=== PATIENT | male | born 1990 | race Caucasian/White ===

== ENCOUNTER 2018-05-03 12:02 | Emergency (ER) | payer OTHER ==
[~2018-05-03] VITALS: Ht 175.3 cm; Wt 90.7 kg
--- NOTE | 2018-05-03 12:30 | NUR ---
Patient presents to ER c/o abscess on his coccyx. Patient states he has had this problem for months and is requesting a sandwich. Education provided regarding NPO status until seen by [facility]. To room 5A.
--- NOTE | 2018-05-03 14:09 | NUR ---
Patient discharged to home in stable conditon. Written and verbal after care instructions given. Patient verbalizes understanding of instructions.
== END 2018-05-03 14:10 | disposition home or self-care (01) ==
LOC: ER 12:07 → EDSEX 12:07 → ER 14:10
DX: L05.91 Pilonidal cyst without abscess (principal)
CPT/HCPCS: 99283; A4663

== ENCOUNTER 2018-07-25 14:52 | Emergency (ER) | payer OTHER ==
[~2018-07-25] VITALS: Ht 175.3 cm; Wt 95.3 kg
[2018-07-25] MEDS ORDERED: CARB200T PO (15:24)
[2018-07-25] MEDS ORDERED: QUET100T PO (15:24)
[2018-07-25] MEDS ORDERED: QUET200T PO (15:24)
[2018-07-25] MEDS ORDERED: PANTOPRAZOLE SODIUM 40 MG VIAL IV ONE (15:45)
[2018-07-25] MEDS ORDERED: IV NORMAL SALINE 1000 ML BAG IV ONE (15:45)
[2018-07-25] MEDS ORDERED: CLONIDINE HCL 0.1 MG TABLET PO ONE (15:45)
[2018-07-25] MEDS ORDERED: ONDANSETRON 4 MG/2 ML VIAL IV ONE (15:45)
[2018-07-25] MEDS ORDERED: CLONIDINE HCL 0.1 MG TABLET ONE (16:00)
[2018-07-25] MEDS ORDERED: ONDANSETRON 4 MG/2 ML VIAL ONE (16:00)
[2018-07-25 16:01] LABS: BASOPHILS # (AUTO) 0.1 K/uL (0.0-8.0); BASOPHILS % (AUTO) 0.5 % (0.0-2.0); EOSINOPHILS # (AUTO) 0.1 K/uL (0.0-0.7); EOSINOPHILS % (AUTO) 1.3 % (0.0-7.0); HEMATOCRIT 45.9 % (36.7-47.1); HEMOGLOBIN 15.8 g/dL (12.5-16.3); LYMPHOCYTES % (AUTO) 18.8 % (20.5-51.5); MEAN CORPUSCULAR HEMOGLOBIN 30.4 uug (23.8-33.4); MEAN CORPUSCULAR HGB CONC 34 g/dL (32.5-36.3); MEAN CORPUSCULAR VOLUME 88.5 fL (73.0-96.2); MONOCYTES # (AUTO) 0.5 K/uL (2.0-10.0); MONOCYTES % (AUTO) 5.2 % (0.0-11.0); NEUTROPHILS # (AUTO) 7.8 K/uL (1.8-8.9); NEUTROPHILS % (AUTO) 74.2 % (38.5-71.5); PLATELET COUNT (AUTO) 223 K/uL (152-348); RED BLOOD CELL COUNT(AUTO) 5.19 MIL/uL (4.06-5.63); WHITE BLOOD COUNT (AUTO) 10.5 K/uL (3.6-10.2)
[2018-07-25] MEDS ORDERED: PANTOPRAZOLE SODIUM 40 MG VIAL ONE (16:01)
[2018-07-25 16:05] VITALS: BP 157/88
[2018-07-25 16:07] LABS: CREATININE 1.2 mg/dL (0.6-1.3)
[2018-07-25 16:13] LABS: BILIRUBIN,DIRECT 0.1 mg/dL (0.0-0.2); BILIRUBIN,TOTAL 0.6 mg/dL (0.2-1.0); TOTAL PROTEIN, SERUM 8.2 g/dL (6.4-8.2)
[2018-07-25] MEDS ORDERED: CLONAZEPAM 0.5 MG TABLET PO ONE (16:30)
[2018-07-25] MEDS ORDERED: CLONAZEPAM 1 MG TABLET ONE (16:37)
--- NOTE | 2018-07-25 17:12 | NUR ---
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
--- NOTE | 2018-07-25 17:24 | NUR ---
Patient discharged to home in stable conditon. Written and verbal after care instructions given. Patient verbalizes understanding of instructions.PT WAKS IN STEADY GAIT.
== END 2018-07-25 17:25 | disposition home or self-care (01) ==
LOC: ER 14:54
DX: F11.23 Opioid dependence with withdrawal (principal); F11.10 Opioid abuse, uncomplicated; R19.7 Diarrhea, unspecified; Z79.899 Other long term (current) drug therapy
CPT/HCPCS: 36415; 80048; 80076; 85025; 96361; 96374; 96375; 99283; C9113; J2405; A4663; J7030

== ENCOUNTER 2019-02-26 09:39 | Emergency (ER) | payer OTHER ==
[~2019-02-26] VITALS: Ht 175.3 cm; Wt 104.3 kg
[~2019-02-26 09:39] MED LIST: CARB200T PO; QUET100T PO; QUET200T PO
[2019-02-26] MEDS ORDERED: LIDOCAINE HCL 1% 20 ML VIAL TP ONE (10:00)
--- NOTE | 2019-02-26 10:01 | NUR ---
PT IS IN ROOM #2B. DR LOPEZ EVALUATED THE PT AND PERFORMED I&D PROCEDURE AT PT's LEFT THIGH. PT TOLERATED TO PROCEDURE WITHOUT COMPLICATIONS.
--- NOTE | 2019-02-26 10:23 | NUR ---
PT WAS D/C'd TO HOME. D/C INSTRUCTIONS GIVEN TO THE PT. NO BLEEDING. DRESSING IS INTACT.
[2019-02-26 10:24] VITALS: BP 147/85
[2019-02-27] MEDS ORDERED: SULF1TAB48 PO (10:09)
[2019-02-27] MEDS ORDERED: CEPH-570 PO (10:09)
== END 2019-02-26 10:25 | disposition home or self-care (01) ==
LOC: ER 09:39
DX: L02.416 Cutaneous abscess of left lower limb (principal); L03.116 Cellulitis of left lower limb; Z79.899 Other long term (current) drug therapy
CPT/HCPCS: 10060; 99283; J3490; A4663

== ENCOUNTER 2019-02-27 09:54 | Emergency (ER) | payer OTHER ==
[~2019-02-27] VITALS: Ht 175.3 cm; Wt 86.2 kg
[2019-02-27] MEDS ORDERED: CEPH-570 PO (10:09)
[2019-02-27] MEDS ORDERED: SULF1TAB48 PO (10:09)
[2019-02-27] MEDS ORDERED: LIDOCAINE 1%-EPI 1:100,000 20 ML VIAL ONE (10:24)
--- NOTE | 2019-02-27 10:26 | NUR ---
Pt currently stable in NAD. Pt reports to ED secondary to wound follow-up. Pt had an I&D to L inner thigh followed by packing. Packing removed, moderate draining noted. Packing replaced and dressing changed. Pt will be discharged per MD order.
[2019-02-27] MEDS ORDERED: LIDOCAINE 1%-EPI 1:100,000 20 ML VIAL TP ONE (10:30)
== END 2019-02-27 10:45 | disposition home or self-care (01) ==
LOC: ER 09:54
DX: Z48.01 Encounter for change or removal of surgical wound dressing (principal); Z79.899 Other long term (current) drug therapy
CPT/HCPCS: 99283; J3490; A4663

== ENCOUNTER 2019-03-01 13:45 | Emergency (ER) | payer OTHER ==
[~2019-03-01] VITALS: Ht 175.3 cm; Wt 86.2 kg
[~2019-03-01 13:45] MED LIST changes: +CEPH-570 PO; +SULF1TAB48 PO
--- NOTE | 2019-03-01 13:50 | NUR ---
Patient is AOx4, speaking in complete sentences, speech is clear. Able to follow /comprehend directions. Gait is stable. No cardiovascular distress noted. Rate/rhythm regular. No CP. No respiratory distress noted. Respirations even , unlabored, symmetrical chest rise. No adventitious sounds noted. Chief complaint: Patient is here for wound check and redressing. Assessed wound to be circular with irregular edges, less than 1cm in depth. less than 1in in diameter. no signs of cellulitis, nor further infection. Denies Fever/Chills. No recent travel. No pertinent medical history/NKDA. + ETOH/ +recreational drug use/ +5cigarettes per day. Patient in bed, bed in lowest position. Siderails up x 2. Call light within reach. Will continue to monitor accordingly
--- NOTE | 2019-03-01 14:45 | NUR ---
Pt at bedside for physical and history.
--- NOTE | 2019-03-01 15:52 | NUR ---
Wound dressing done on L inner groin, asepsis observed. pt able to tolerate re-dressing. NAD.
--- NOTE | 2019-03-01 15:53 | NUR ---
Patient discharged to home in stable conditon. Written and verbal after care instructions given. Patient verbalizes understanding of instructions. Ambulated from ER with stable gait. All belongings with patient. Dressing applied. No bleeding at site. Covered with dry dressing/tegaderm and iodine for infection control measures.
[2019-03-01 15:58] VITALS: BP 132/78
== END 2019-03-01 16:00 | disposition home or self-care (01) ==
LOC: ER 13:45
DX: Z48.01 Encounter for change or removal of surgical wound dressing (principal); F17.210 Nicotine dependence, cigarettes, uncomplicated; F11.10 Opioid abuse, uncomplicated; Z79.899 Other long term (current) drug therapy
CPT/HCPCS: A4663

== ENCOUNTER 2022-09-09 22:00 | Emergency (ER) | payer OTHER ==
[~2022-09-09] VITALS: Ht 177.8 cm; Wt 83.0 kg
[2022-09-09] MEDS ORDERED: IV NORMAL SALINE 1000 ML BAG IV ONE (23:15)
[2022-09-09] MEDS ORDERED: KETOROLAC TROMETHAMINE 30 MG INJ IVP ONE (23:15)
[2022-09-09 23:30] LABS: HEMATOCRIT 40.3 % (36.7-47.1); MEAN CORPUSCULAR HEMOGLOBIN 30.8 uug (23.8-33.4); MEAN CORPUSCULAR VOLUME 90.1 fL (73.0-96.2); PLATELET COUNT (AUTO) 181 K/uL (152-348)
[2022-09-09 23:46] LABS: CARBON DIOXIDE 31 mmol/L (21-32); CHLORIDE 102 mmol/L (98-107); CREATININE 0.8 mg/dL (0.6-1.3); GLUCOSE 107 mg/dL (74-106); POTASSIUM 3.7 mmol/L (3.5-5.1); UREA NITROGEN, BLOOD 18 mg/dL (7-18)
[2022-09-10] MEDS ORDERED: KETOROLAC TROMETHAMINE 30 MG INJ ONE (00:05)
[2022-09-10] MEDS ORDERED: BENZ-13 PO (01:00)
[2022-09-10] MEDS ORDERED: GUAI-789 PO (01:00)
--- NOTE | 2022-09-10 01:02 | NUR ---
Patient discharged to home in stable condition. Written and verbal after care instructions given. Patient verbalizes understanding of instructions. Stressed follow up or return to ER for worsening s/s. Patient walked out with steady gait.
[2022-09-10 02:25] VITALS: BP 130/76
== END 2022-09-10 01:05 | disposition home or self-care (01) ==
LOC: ER 22:00
DX: R05.9 Cough, unspecified (principal); R07.9 Chest pain, unspecified; Z86.19 Personal history of other infectious and parasitic diseases; Z87.448 Personal history of other diseases of urinary system; Z20.822 Contact with and (suspected) exposure to COVID-19
CPT/HCPCS: 99285; 96360; 71045; 87426; 87804 ×2; 80048; 85025; 84484; 36415; 93005; J7040; A4663; J1885